=== PATIENT | male | born 1985 | race Two or more races ===

== ENCOUNTER 2025-03-14 16:07 | Emergency (ER) | payer OTHER, SELFPAY ==
[2025-03-14 16:21] VITALS: BP 151/99; PULSE 87; RESP 20; TEMP 37.1; O2SAT 99; BMI 39.1
--- NOTE | 2025-03-14 16:45 | EDNOTE_ITS ---
Lower Extremity Injury RME/HPI General Chief Complaint: Hip Injury/Pain Stated Complaint: SEVERE L) HIP PAIN X 5 DAYS; HX SCIATICA Time Seen by Provider: 03/14/25 16:32 Arrival date/time: 03/14/25 16:07 RME / HPI RME / HPI Narrative: 39-year-old male presents to the ED with complaint of left hip pain x 5 days. He has a history of sciatica but it usually affects his right side. He denies numbness or tingling to his left leg. He denies any loss of bladder or bowel control. Pain is worsened by movement or sitting too long. Related Data Previous Rx's ?Medication ?Instructions ?Recorded acetaminophen 650 mg 650 mg PO Q8H PRN fever or p ain 09/04/22 tablet,extended release #30 tabs ibuprofen 600 mg tablet 600 mg PO Q8H PRN fever or p ain 09/04/22 #30 tabs neomycin-bacitracn Zn-polymyx 3.5 1 applicatio topical BID #15 grams 09/04/22 mg-400 unit-5,000 unit/gram top oint (Triple Antibiotic) meloxicam 15 mg tablet 15 mg PO QDAY #10 tabs 03/14 methocarbamol 750 mg tablet 750 mg PO Q8H Pain/muscle spasms 03/14/25 #15 tabs Allergies Allergy/AdvReac Type Severity Reaction Status Date / Time No Known Allergies Allergy Verified 03/14/25 16:10 Review of Systems Review of Systems Systems Reviewed: All systems reviewed, normal except as documented Past Medical History Past Medical History NEUROLOGIC: Negative Neurological Disorders CARDIAC: Negative Cardiac Disorders or Congestive Heart Failure RESPIRATORY: Negative Chronic Obstructive Pulmonary Disease (COPD) GASTROINTESTINAL: Positive Gastroesophageal Reflux Disease and Obesity; Negative Gastrointestinal Disorders or Hepatitis GENITOURINARY: Negative Genitourinary Disorders or Renal Disease MUSCULOSKELETAL: Negative Musculoskeletal Disorders ENDOCRINE: Negative Endocrine Disorders, Diabetes Mellitus Type 1 or Diabetes Mellitus Type 2 OTHER HISTORY: Negative Autoimmune Disease, Anesthesia Reactions, Organ Transplant, MRSA, VRSA, Vancomycin-Resistant Enterococci or Cancer Family History FAMILY HISTORY: Negative Family Cardiac Disorders Surgical History SURGICAL: Negative Cardiac Surgery, Endocrine Surgery, Ear Surgery, Nephrectomy, Joint Replacement, Neurologic Surgery, Vasectomy or Organ Transplant Social History SMOKING STATUS: Former smoker SECOND HAND EXPOSURE: No ED Exam Narrative Physical exam: Alert and oriented 39-year-old male, mild acute pain distress due to left-sided sciatica. Lungs are clear, regular rate and rhythm without murmurs. Abdomen is soft and nontender. Left sciatic notch tenderness. No lumbar spinal tenderness. Positive left straight leg raise. Course Course Course Narrative: Left hip with pelvis x-ray reveals minimal bilateral osteoarthritis of the hips. He was given Toradol 30 mg IM, hydrocodone 10 mg p.o., Valium 5 mg p.o. Quality Measures none Orders Category Date Time Status XR hip LT w pelvis 2-3V Stat Exams 03/14/25 16:51 Completed Diazepam [Valium] Med 03/14/25 17:45 Discontinued 5 mg PO X1 ONE HYDROcodone/APAP 10/325 [[place] 10/325] Med 03/14/25 17:45 Discontinued 1 tab PO X1 ONE Ketorolac Inj [Toradol Inj] Med 03/14/25 16:50 Discontinued 30 mg IM X1 ONE Vital Signs Vital signs: Vital Signs Temperature 98.7 F 03/14/25 16:21 Pulse Rate 87 03/14/25 16:21 Respiratory Rate 20 03/14/25 16:21 Blood Pressure 151/99 H 03/14/25 16:21 Pulse Oximetry (%) 99 03/14/25 16:21 Oxygen Delivery Method Room Air 03/14/25 16:21 Extremity Injury, Lower MDM Narrative MDM Narrative:: Alert and oriented, very pleasant 63-year-old male, nontoxic-appearing, afebrile, mild acute distress due to eye discomfort with watering. Scleral and conjunctiva erythema. Eyelids everted for exam. No foreign body noted in either upper or lower eyelids. Barry lamp exam with fluorescein dye after tetracaine drops utilized for anesthesia. No fluorescein dye uptake noted in the cornea, sclera, conjunctiva. No obvious foreign body noted on initial exam. Lungs are clear, regular rate and rhythm without murmurs. Alert and oriented 39-year-old male, mild acute pain distress due to left-sided sciatica. Lungs are clear, regular rate and rhythm without murmurs. Abdomen is soft and nontender. Left sciatic notch tenderness. No lumbar spinal tender ness. Positive left straight leg raise. Left hip with pelvis x-ray reveals minimal bilateral osteoarthritis of the hips. He was given Toradol 30 mg IM, hydrocodone 10 mg p.o., Valium 5 mg p.o. Patient data External records reviewed:: None Clinical information provided by:: patient Social determinants that could affect healthcare access:: none Patient has the following chronic illnesses:: N/A How is presenting disease/condition affected by chronic disease/condition?: no chronic disease Evaluation data The following diagnostics were reviewed and interpreted by me:: radiology exam(s) Lab and/or radiology exams considered but not ordered:: N/A Interpretation Summary: Left hip and pelvis: Minimal bilateral hip osteoarthritis, per radiologist. Medications / Prescriptions Medications or Prescriptions considered but not ordered:: N/A Medication administrations:: Medication Administration History Discontinued Medications Hydrocodone Bitart/Acetaminophen (Hydrocodone/Apap 10/325 Tab) 1 tab PO X1 ONE Stop: 03/14/25 17:46 Last Admin: 03/14/25 17:55 Dose: 1 tab Documented By: MADELINE Diazepam (Diazepam 5 Mg Tablet) 5 mg PO X1 ONE Stop: 03/14/25 17:46 Last Admin: 03/14/25 17:55 Dose: 5 mg Documented By: MADELINE Ketorolac Tromethamine (Ketorolac Inj 60 Mg/2 Ml Vial) 30 mg IM X1 ONE Stop: 03/14/25 16:51 Last Admin: 03/14/25 17:08 Dose: 30 mg Documented By: MADELINE Toradol 30 mg IM, diazepam 5 mg p.o., hydrocodone 10 mg p.o. Consultations Consultation(s) initiated? (list below): No Diagnosis Extremity Injury, Lower Differential Diagnosis: fracture of hip and other (Sciatica, greater trochanteric bursitis, low back strain) Most likely diagnosis given after review of the tests above:: Left-sided sciatica Admission Indicated Admission indicated?: not indicated Explain why admission is indicated or not indicated:: Patient is stable for discharge Admission Request Was there a request for admission?: No Admission Attestation Admission request attestation: N/A Disposition Plan Disposition Plan: Discharge Discharge Attestation Discharge Attestation: The patient and all family members were given an opportunity to ask questions and understood the discharge instructions. Discharge instructions specifically effects, indications for sooner follow up or return to the emergency department, and the expected course of current diagnosis. Patient condition: Stable Discharge Plan Plan Patient Disposition: HOME (Self Care) Discharge Disposition comment: Stable and improved Prescriptions/Referrals Prescriptions/Med Rec: New meloxicam 15 mg tablet 15 mg PO QDAY Qty: 10 0RF methocarbamol 750 mg tablet 750 mg PO Q8H Qty: 15 0RF Rx Instructions: Do not drive or operate machinery while taking this medication. No Action acetaminophen 650 mg tablet extended release 650 mg PO Q8H PRN (Reason: fever or pain) Qty: 30 0RF Rx Instructions: swallow whole; do not chew/break/dissolve/open Triple Antibiotic 3.5mg-400 unit- 5,000 unit/gram ointment 1 applicatio TOPICAL BID Qty: 15 0RF ibuprofen 600 mg tablet 600 mg PO Q8H PRN (Reason: fever or pain) Qty: 30 0RF Referrals: No Primary/Family,Physician [Primary Care Provider] - In 1 week Problem List Clinical Impression: Sciatica of left side Patient/Caregiver Discharge Instructions Education Materials: ED Sciatica Additional Instructions: Follow-up with your primary care physician in 24 to 48 hours. Return to the ED for any new or worsening symptoms. Print Language: British Stand Alone Forms: [place] Award Info., Work/School Release, Patient Portal Info Letter PA/COMMUNITY LIAISON Supervising Physician PA/COMMUNITY LIAISON Supervising Physician: Dr. Woodard
--- NOTE | 2025-03-14 16:51 | XR_ITS ---
Examination:Left hip AP, lateral, AP pelvis 3 views Technique: Hip AP lateral, AP pelvis, 3 views Exam date and time: March 14, 2025 1654 hours INDICATIONS: Left hip pain beginning 5 days ago. FINDINGS: Minimal bilateral hip osteoarthritis No definite fracture or dislocation No avascular necrosis Right hip bones of the pelvis and back IMPRESSION: Minimal bilateral hip osteoarthritis
[2025-03-14] MEDS: KETOROLAC INJ 60 MG/2 ML VIAL 30 MG IM (17:08)
[2025-03-14] MEDS: HYDROcodone/APAP 10/325 TAB PO (17:55)
[2025-03-14] MEDS: DIAZEPAM 5 MG TABLET PO (17:55)
== END 2025-03-14 18:00 | disposition home or self-care (01) ==
PROVIDERS: Emergency Provider Family Medicine
DX: M16.0 Bilateral primary osteoarthritis of hip (principal)
CPT/HCPCS: 73502; 96372; 99283; J1885; A9270